=== PATIENT | male | born 2000 | race Caucasian/White ===

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

== ENCOUNTER 2020-05-14 16:11 | Emergency (ER) | payer OTHER ==
[~2020-05-14] VITALS: Ht 193 cm; Wt 127.0 kg
[~2020-05-14 16:11] MED LIST changes: +FLONASE 0.05%50 MCG NASAL; +ZYRTEC10 M5 PO
[2020-05-14] MEDS ORDERED: PROAIR HFA8.5 GM INH (16:24)
[2020-05-14 17:29] LABS: URINE BILIRUBIN NEGATIVE (Negative); URINE BLOOD NEGATIVE (Negative); URINE CLARITY CLEAR; URINE COLOR YELLOW; URINE GLUCOSE-RANDOM NEGATIVE (Negative); URINE KETONES NEGATIVE (Negative); URINE LEUKOCYTES-REFLEX NEGATIVE (Negative); URINE NITRITE-REFLEX NEGATIVE (Negative); URINE PROTEIN NEGATIVE (Negative); URINE UROBILINOGEN 0.2 E.U./dl (0.2-1.0)
[2020-05-14] MEDS ORDERED: DOXYCYCLINE 10100 M2 PO (18:51)
[2020-05-14] MEDS ORDERED: HYDROCODON-ACE1 EAC7 PO (18:51)
[2020-05-14 19:22] LABS: ABSOLUTE EOSINOPHILS 0.1 thou/uL (0.0-0.7); ABSOLUTE LYMPHOCYTES 1.6 thou/uL (0.8-5.3); ABSOLUTE MONOCYTES 0.6 thou/uL (0.0-1.2); ABSOLUTE NEUTROPHILS 5.6 thou/uL (1.6-8.1); BASOPHILS 0.5 %; EOSINOPHILS 1.3 %; HEMATOCRIT 44.8 % (42.0-52.0); HEMOGLOBIN 14.9 gm/dL (14.0-18.0); LYMPHOCYTES 20.4 %; MCH 29.3 pg (26.0-34.0); MCHC 33.2 g/dL (28.0-37.0); MCV 88.4 fL (80.0-100.0); MONOCYTES 7.3 %; MPV 8.6 fl. (7.2-11.1); NUCLEATED RBCS 0 /100WBC; PLATELET COUNT* 261 thou/uL (150-400); POLYS 70.5 %; RBC 5.07 mil/uL (4.50-6.00); RDW-CV 13.5 % (10.5-14.5)
[2020-05-14 19:29] LABS: CALCIUM 9.1 mg/dL (8.5-10.1)
[2020-05-14 19:31] VITALS: BP 141/62
[2020-05-14 19:33] LABS: ALBUMIN 4.1 g/dL (3.4-5.0); TOTAL BILIRUBIN 0.6 mg/dL (<0.1-1.0); TOTAL PROTEIN 7.2 g/dL (6.4-8.2)
--- NOTE | 2020-05-15 14:37 | EKG ---
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[facility] : 2000 Requested By: Osito Jaquez Order Number: [id number] MD: Charles Dhaliwal Measurements Intervals [place] Rate: 73 P: 28 MD: 168 QRS: 27 QRSD: 85 T: 34 QT: 355 QTc: 392 Interpretive Statements Sinus rhythm ST elev, probable normal early repol pattern Compared to ECG 08/21/2018 20:26:06 no change Electronically Signed On 05-15-2020 14:36:49 [employer] by Charles Dhaliwal [email or web address] <ELECTRONICALLY SIGNED> By: Charles Dhaliwal MD, [facility] 05/15/20 1436 1734 1734 Charles Dhaliwal MD, [facility] /EPI
== END 2020-05-14 19:38 | disposition home or self-care (01) ==
LOC: M.ERS 16:11
PROVIDERS: Emergency Medicine Emergency Medical Services
DX: N45.1 Epididymitis (principal); K21.9 Gastro-esophageal reflux disease without esophagitis; J45.909 Unspecified asthma, uncomplicated; G43.909 Migraine, unspecified, not intractable, without status migrainosus; Z79.899 Other long term (current) drug therapy; Z88.1 Allergy status to other antibiotic agents; Z88.5 Allergy status to narcotic agent; Z88.8 Allergy status to other drugs, medicaments and biological substances; Z91.09 Other allergy status, other than to drugs and biological substances

== ENCOUNTER 2020-07-16 10:24 | Emergency (ER) | payer OTHER ==
[~2020-07-16] VITALS: Ht 193 cm; Wt 120.2 kg
[~2020-07-16 10:24] MED LIST changes: +DOXYCYCLINE 10100 M2 PO; +HYDROCODON-ACE1 EAC7 PO; +PROAIR HFA8.5 GM INH
[2020-07-16] MEDS ORDERED: ZPAK PO (11:03)
[2020-07-16 11:11] VITALS: BP 138/72
== END 2020-07-16 11:12 | disposition home or self-care (01) ==
LOC: M.ERS 10:24
DX: H61.21 Impacted cerumen, right ear (principal); G43.909 Migraine, unspecified, not intractable, without status migrainosus; K21.9 Gastro-esophageal reflux disease without esophagitis; J45.909 Unspecified asthma, uncomplicated; Z87.442 Personal history of urinary calculi; Z88.1 Allergy status to other antibiotic agents; Z88.2 Allergy status to sulfonamides; Z91.048 Other nonmedicinal substance allergy status

== ENCOUNTER 2021-02-15 12:19 | Emergency (ER) | payer OTHER, MEDICAID ==
[~2021-02-15] VITALS: Ht 190.5 cm; Wt 122.5 kg
[2021-02-15 12:44] LABS: URINE BILIRUBIN NEGATIVE (Negative); URINE BLOOD 2+ (Negative); URINE CLARITY CLEAR; URINE COLOR YELLOW; URINE GLUCOSE-RANDOM NEGATIVE (Negative); URINE KETONES NEGATIVE (Negative); URINE LEUKOCYTES-REFLEX NEGATIVE (Negative); URINE NITRITE-REFLEX NEGATIVE (Negative); URINE PROTEIN NEGATIVE (Negative); URINE SPECIFIC GRAVITY >= 1.030 (1.005-1.030); URINE UROBILINOGEN 0.2 E.U./dl (0.2-1.0)
[2021-02-15 12:54] LABS: SQUAMOUS NONE SEEN /LPF (0-3)
[2021-02-15 12:55] LABS: BACTERIA-REFLEX None Seen /HPF (None Seen); CASTS None Seen /LPF (None Seen); CRYSTALS None Seen /LPF (None Seen); URINE RBC None Seen /HPF (0-2); URINE WBC-REFLEX None Seen /HPF (0-5)
[2021-02-15 13:19] LABS: ABSOLUTE EOSINOPHILS 0.1 thou/uL (0.0-0.7); ABSOLUTE MONOCYTES 0.4 thou/uL (0.0-1.2); ABSOLUTE NEUTROPHILS 4.6 thou/uL (1.6-8.1); BASOPHILS 0.7 %; EOSINOPHILS 1.6 %; HEMATOCRIT 49.7 % (42.0-52.0); HEMOGLOBIN 16.9 gm/dL (14.0-18.0); LYMPHOCYTES 16.5 %; MCH 30.1 pg (26.0-34.0); MCV 88.5 fL (80.0-100.0); MONOCYTES 6.4 %; MPV 8.6 fl. (7.2-11.1); NUCLEATED RBCS 0 /100WBC; PLATELET COUNT* 261 thou/uL (150-400); POLYS 74.8 %; RBC 5.61 mil/uL (4.50-6.00); RDW-CV 13.2 % (10.5-14.5); WBC 6.1 thou/uL (4.0-11.0)
[2021-02-15 13:28] LABS: CALCIUM 9.2 mg/dL (8.5-10.1); POTASSIUM 4.2 mmol/L (3.5-5.1)
[2021-02-15 13:33] LABS: ALBUMIN 4.3 g/dL (3.4-5.0); TOTAL BILIRUBIN 0.9 mg/dL (<0.1-1.0); TOTAL PROTEIN 7.9 g/dL (6.4-8.2)
[2021-02-15] MEDS ORDERED: FLOMAX0.4 MG PO (14:46)
[2021-02-15] MEDS ORDERED: IBUPROFEN 800800 M1 PO (14:46)
[2021-02-15] MEDS ORDERED: HYDROCODON-ACE1 EAC7 PO (15:17)
[2021-02-15 15:22] VITALS: BP 111/70
== END 2021-02-15 15:22 | disposition home or self-care (01) ==
LOC: M.ERS 12:19
PROVIDERS: Nurse Practitioner Family
DX: N20.0 Calculus of kidney (principal); K21.9 Gastro-esophageal reflux disease without esophagitis; J45.909 Unspecified asthma, uncomplicated; G43.909 Migraine, unspecified, not intractable, without status migrainosus; Z88.1 Allergy status to other antibiotic agents; Z88.8 Allergy status to other drugs, medicaments and biological substances; Z88.2 Allergy status to sulfonamides; Z91.048 Other nonmedicinal substance allergy status; Z87.442 Personal history of urinary calculi